=== PATIENT | male | born 1970 | race Caucasian/White ===

== ENCOUNTER 2016-06-29 17:46 | Inpatient (IN) | payer OTHER ==
[~2016-06-29] VITALS: Ht 177.8 cm; Wt 132.6 kg
[~2016-06-29 17:46] MED LIST: ABILIFY10 MG PO; ABILIFY15 MG PO; ABILIFY20 MG PO; ABILIFY30 MG PO; ABILIFY5 MG PO; ADULT LOW DOSE81 M1; ALEVE220 M2 PO; ASPIR 8181 M1 PO; ASPIR-LOW81 MG PO; ASPIRIN325 MG PO; AZITHROMYCIN500 M1 PO; Abilify PO; BAYER ASPIRIN325 M1 PO; BRILINTA90 MG PO; BUSPAR10 MG PO; CHANTIX1 EACH; CHANTIX1 MG; CLONAZEPAM1 MG; CYANOCOBALAM1000 MCG PO; CYCLOBENZAPRINE 10 M; CYCLOBENZAPRINE10 MG PO; DESYREL100 MG PO; DOXEPIN HCL50 MG PO; ECOTRIN325 MG PO; ENDOCET 5-3251 EACH PO; ENDOCET 7.5-321 EACH PO; ESCITALOPRAM OX10 MG PO; ESCITALOPRAM OX20 MG PO; Ecotrin PO; FAMOTIDINE40 MG PO; FLEXERIL10 MG PO; FORTAMET1000 M1 PO; FUROSEMIDE20 MG; FUROSEMIDE20 MG PO; FUROSEMIDE40 MG PO; Flexeril PO; GABAPENTIN300 MG PO; GABAPENTIN600 MG PO; GABAPENTIN800 MG PO; GLIPIZIDE10 M1 PO; GLIPIZIDE10 MG PO; GLIPIZIDE5 M1 PO; GLUCOPHAGE1000 M1; GLUCOPHAGE1000 MG; GLUCOPHAGE1000 MG PO; GLUCOTROL10 MG PO; Glucotrol PO; Habitrol,Nicoderm CQ TD; IBUPROFEN800 MG PO; IMDUR60 MG PO; ISOSORBIDE DINI30 MG PO; ISOSORBIDE MONO30 MG PO; Imdur PO; KLONOPIN1 MG PO; KLONOPIN2 MG PO; KlonoPIN PO; LAMICTAL (GREE1 EACH; LAMICTAL PO; LAMICTAL XR300 MG PO; LAMICTAL100 MG PO; LAMICTAL200 MG PO; LAMICTAL25 MG PO; LAMOTRIGINE100 MG; LAMOTRIGINE25 MG PO; LANTUS (UNITS)1 UNIT SC; LANTUS 10100 UNITS/ SC; LANTUS 3 M100 UNITS/ PO; LANTUS 3 M100 UNITS/ SC; LANTUS100 UNIT/1 SQ; LASIX20 MG PO; LEVAQUIN750 MG PO; LEVEMIR FL100 UNIT/1 SC; LEVEMIR FL100 UNIT/1 SQ; LEVEMIR FL100 UNITS/ SC; LIDODERM 5% P1 PATCH TD; LIPITOR40 MG PO; LIPITOR80 MG PO; LISINOPRIL 20 MG TAB; LISINOPRIL10 MG PO; LISINOPRIL20 MG PO; LITE COAT ASPI325 M1 PO; LOPRESSOR100 M1 PO; LOPRESSOR100 MG; LOPRESSOR25 MG PO; LOPRESSOR50 MG PO; LaMICtal PO; Lasix PO; Lipitor PO; METFORMIN HCL1000 MG PO; METFORMIN HCL500 MG PO; METOPROLOL SUCC50 MG PO; METOPROLOL TART25 MG PO; METOPROLOL TART50 MG PO; MORPHINE SULFAT15 M1 PO; MOTRIN600 MG PO; MOTRIN800 MG PO; Motrin PO; NEURONTIN300 MG PO; NEURONTIN600 MG PO; NICOTINE PATCH1 EAC1 TD; NITROGLYCERIN0.3 MG BC; NITROGLYCERIN0.4 MG PO; NITROGLYCERIN0.4 MG SL; NITROSTAT,NITR0.4 M1; NITROSTAT0.4 MG SL; NOHOMEMEDS; NORCO 7.5/321 TABLET PO; NOVOLOG PE100 UNITS/ SC; NOVOLOG PE100 UNITS/ SQ; Neurontin PO; Nitrostat,NitroQuick SL; OXYCODONE-APAP1 EACH; PEPCID40 MG PO; PERCOCET 10-321 EACH; PERCOCET 10/1 TABLET; PERCOCET 10/1 TABLET PO; PERCOCET 7.51 TABLET PO; PERMETHRIN60 GM TP; PLAVIX75 MG; PLAVIX75 MG PO; PREDNISONE20 MG PO; PRINIVIL10 MG PO; PRINIVIL20 MG PO; PROAIR HFA8.5 GM IH; Percocet 5/325,Endoc PO; Plavix PO; ROBITUSSIN DM118 ML PO; ROZEREM PO; SIMVASTATIN40 MG; SIMVASTATIN40 MG PO; SIMVASTATIN80 M1 PO; ST. JOSEPH ASPI81 MG PO; THERAGRAN1 TABLET PO; TOPAMAX15 MG; TOPROL XL100 MG PO; TRAMADOL HCL50 MG PO; TRAZODONE HCL100 MG PO; TYLENOL WITH C1 EACH PO; Toprol XL PO; Tylenol Regular Stre PO; ULTRAM50 MG PO; VALIUM5 MG PO; VENTOLIN HFA18 GM IH; WELLBUTRIN75 MG PO; ZESTRIL,PRINIVI20 MG PO; ZESTRIL,PRINIVIL5 MG PO; ZESTRIL10 MG PO; Zestril,Prinivil PO; Zithromax PO; Zocor PO; [UNRECOGNIZED DRUG - OTHER] PO; simvastatin
[2016-06-29] MEDS ORDERED: TRICOR145 MG PO (18:01)
[2016-06-29] MEDS ORDERED: GLIPIZIDE10 MG PO (18:02)
[2016-06-29] MEDS ORDERED: PANTOPRAZOLE SO40 MG PO (18:06)
[2016-06-29] MEDS ORDERED: TRULICITY1.5 MG/0.5 SC (18:09)
[2016-06-29] MEDS ORDERED: NOVOLOG100 UNIT/1 SC (18:09)
[2016-06-29 18:40] LABS: HEMATOCRIT 44.6 % (38.0-50.0); MCH 31.3 PG (29.0-34.0); MCHC 35.2 G/DL (30.0-36.0); MCV 88.8 FL (86-99); MEAN PLAT.VOLUME 8.8 uM^3 (9.0-12.4); PLATELET COUNT 217 K/uL (156-360); RBC DIS.WIDTH-CV 12.9 % (11.8-14.6); RBC DIS.WIDTH-SD 42.1 % (39-53); RED BLOOD COUNT 5.02 M/uL (4.00-5.50)
[2016-06-29 18:43] LABS: WHITE BLOOD COUNT 13.7 K/uL (4.1-10.2)
[2016-06-29 18:54] LABS: CHLORIDE 103 mEq/L (99-109); POTASSIUM 3.9 mEq/L (3.7-5.4); SODIUM 136 mEq/L (136-147)
[2016-06-29 18:57] LABS: GLUCOSE 186 mg/dL (70-99)
[2016-06-29 18:58] LABS: ANION GAP 14 MEQ/L (2-14)
[2016-06-29 18:59] LABS: TOTAL BILIRUBIN 0.9 mg/dL (0.0-1.0)
[2016-06-29 19:00] LABS: ALKALINE PHOSPHATASE 83 IU/L (3-129); GFR ESTIMATE (CALCULATED) 57 mL/min/
[2016-06-29 19:01] LABS: UREA NITROGEN (BUN) 23 mg/dL (9-23)
[2016-06-29 19:02] LABS: TROP-I INTERPRETATION NEGATIVE; TROPONIN-I < 0.01 ng/mL (0.0-0.30)
[2016-06-30] VITALS (7 sets, daily range): BP systolic 96–130; BP diastolic 57–77
[2016-06-30 05:48] LABS: BASOPHIL COUNT 0.1 K/uL (0-0.1); EOSINOPHIL COUNT 0.2 K/uL (0-0.3); HEMATOCRIT 39.5 % (38.0-50.0); IMMATURE GRANULOCYTE (%) 0.8 % (0.0-0.7); IMMATURE GRANULOCYTE COUNT 0.1 K/uL; INSTRUMENT ABS NEUTROPHIL CT 4.6 K/uL; LYMPHOCYTE COUNT 3.4 K/uL (1.0-2.8); MCH 31.6 PG (29.0-34.0); MCHC 34.2 G/DL (30.0-36.0); MCV 92.5 FL (86-99); MEAN PLAT.VOLUME 9.1 uM^3 (9.0-12.4); MONOCYTE (%) 8.4 % (3-12); MONOCYTE COUNT 0.8 K/uL (0-0.8); NEUTROPHIL (%) 51.2 % (45-76); NEUTROPHIL COUNT 4.6 K/uL (1.8-6.4); PLATELET COUNT 204 K/uL (156-360); RBC DIS.WIDTH-CV 13.2 % (11.8-14.6); RBC DIS.WIDTH-SD 44.9 % (39-53); RED BLOOD COUNT 4.27 M/uL (4.00-5.50); WHITE BLOOD COUNT 9.1 K/uL (4.1-10.2)
[2016-06-30 06:14] LABS: ANION GAP 9 MEQ/L (2-14); CHLORIDE 104 MEQ/L (99-109); GFR ESTIMATE (CALCULATED) > 59 mL/min/; GLUCOSE 218 mg/dL (70-99); POTASSIUM 3.9 MEQ/L (3.7-5.4); SAMPLE HEMOLYSIS CHECK 0; SAMPLE ICTERIC CHECK 0; SAMPLE LIPEMIA CHECK 0; SODIUM 136 MEQ/L (136-147); UREA NITROGEN (BUN) 23 mg/dL (9-23)
[2016-06-30 12:34] LABS: POINT-OF-CARE METER ID UU14149397
[2016-06-30 16:16] LABS: POINT-OF-CARE METER ID UU14149397
[2016-06-30 21:43] LABS: POINT-OF-CARE METER ID UU14149397
[2016-07-01 04:46] VITALS: BP 120/69
[2016-07-01 06:06] LABS: POINT-OF-CARE METER ID UU14149397
[2016-07-01 06:12] LABS: EOSINOPHIL (%) 1.9 % (0-5); EOSINOPHIL COUNT 0.1 K/uL (0-0.3); IMMATURE GRANULOCYTE (%) 0.7 % (0.0-0.7); IMMATURE GRANULOCYTE COUNT 0.1 K/uL; INSTRUMENT ABS NEUTROPHIL CT 4.1 K/uL; LYMPHOCYTE COUNT 2.5 K/uL (1.0-2.8); MCH 31.4 PG (29.0-34.0); MCV 92.4 FL (86-99); MONOCYTE (%) 8.6 % (3-12); MONOCYTE COUNT 0.6 K/uL (0-0.8); NEUTROPHIL (%) 54.5 % (45-76); NEUTROPHIL COUNT 4.1 K/uL (1.8-6.4); PLATELET COUNT 168 K/uL (156-360); RBC DIS.WIDTH-CV 12.5 % (11.8-14.6); RBC DIS.WIDTH-SD 42.5 % (39-53); RED BLOOD COUNT 4.33 M/uL (4.00-5.50); WHITE BLOOD COUNT 7.4 K/uL (4.1-10.2)
[2016-07-01 06:42] LABS: ANION GAP 7 MEQ/L (2-14); CHLORIDE 104 MEQ/L (99-109); GFR ESTIMATE (CALCULATED) > 59 mL/min/; GLUCOSE 130 mg/dL (70-99); POTASSIUM 4.4 MEQ/L (3.7-5.4); SAMPLE HEMOLYSIS CHECK 0; SAMPLE ICTERIC CHECK 0; SAMPLE LIPEMIA CHECK 0; SODIUM 139 MEQ/L (136-147); UREA NITROGEN (BUN) 14 mg/dL (9-23)
[2016-07-01 08:06] VITALS: BP 128/69
[2016-07-01 10:47] VITALS: BP 134/87
[2016-07-01 11:34] LABS: POINT-OF-CARE METER ID UU14149397
[2016-07-01 13:29] LABS: POINT-OF-CARE METER ID UU13113675
[2016-07-01 16:05] VITALS: BP 124/75
[2016-07-01 20:20] VITALS: BP 124/72
[2016-07-01 21:19] LABS: POINT-OF-CARE METER ID UU14149397
[2016-07-01 23:33] VITALS: BP 113/69
[2016-07-02 04:47] VITALS: BP 114/68
[2016-07-02 05:50] LABS: GFR ESTIMATE (CALCULATED) > 59 mL/min/; UREA NITROGEN (BUN) 14 mg/dL (9-23)
[2016-07-02 07:45] VITALS: BP 11/74
[2016-07-02 11:47] LABS: POINT-OF-CARE METER ID UU14149397
[2016-07-02 12:15] VITALS: BP 108/59
[2016-07-02 16:20] LABS: POINT-OF-CARE METER ID UU14149397
[2016-07-02 16:30] VITALS: BP 113/72
[2016-07-02 19:17] VITALS: BP 119/70
[2016-07-02 21:24] LABS: POINT-OF-CARE METER ID UU14149397
[2016-07-02 23:39] VITALS: BP 124/67
[2016-07-03 03:22] VITALS: BP 125/58
[2016-07-03 05:53] LABS: EOSINOPHIL COUNT 0.1 K/uL (0-0.3); IMMATURE GRANULOCYTE (%) 0.4 % (0.0-0.7); INSTRUMENT ABS NEUTROPHIL CT 3.5 K/uL; LYMPHOCYTE COUNT 2.6 K/uL (1.0-2.8); MCH 31.8 PG (29.0-34.0); MCHC 34.7 G/DL (30.0-36.0); MCV 91.6 FL (86-99); MEAN PLAT.VOLUME 9.2 uM^3 (9.0-12.4); MONOCYTE (%) 9.5 % (3-12); MONOCYTE COUNT 0.7 K/uL (0-0.8); NEUTROPHIL (%) 50.4 % (45-76); NEUTROPHIL COUNT 3.5 K/uL (1.8-6.4); PLATELET COUNT 161 K/uL (156-360); RBC DIS.WIDTH-CV 12.7 % (11.8-14.6); RBC DIS.WIDTH-SD 42.7 % (39-53); RED BLOOD COUNT 4.15 M/uL (4.00-5.50); WHITE BLOOD COUNT 6.9 K/uL (4.1-10.2)
[2016-07-03 06:17] LABS: ANION GAP 7 MEQ/L (2-14); CHLORIDE 105 MEQ/L (99-109); GFR ESTIMATE (CALCULATED) > 59 mL/min/; GLUCOSE 152 mg/dL (70-99); POTASSIUM 3.8 MEQ/L (3.7-5.4); SAMPLE HEMOLYSIS CHECK 0; SAMPLE ICTERIC CHECK 0; SAMPLE LIPEMIA CHECK 0; SODIUM 137 MEQ/L (136-147); UREA NITROGEN (BUN) 11 mg/dL (9-23)
[2016-07-03 06:34] LABS: POINT-OF-CARE METER ID UU14149397
[2016-07-03 07:06] VITALS: BP 120/73
[2016-07-03 11:02] VITALS: BP 133/81
[2016-07-03 15:43] VITALS: BP 131/71
[2016-07-03] MEDS ORDERED: MOTRIN600 MG PO (19:14)
[2016-07-03] MEDS ORDERED: DOCUSATE SODIU100 MG PO (19:15)
[2016-07-03] MEDS ORDERED: HYDROCODON-ACE1 EAC7 PO (19:16)
[2016-07-03] MEDS ORDERED: AMPICILLIN TRI500 MG PO (19:18)
[2016-07-03] MEDS ORDERED: BENADRYL25 MG PO (19:20)
[2016-07-03] MEDS ORDERED: AUGMENTIN875 MG PO (20:24)
== END 2016-07-03 20:42 | disposition home or self-care (01) | DRG 728 ==
LOC: EME 17:46 → 3EAST 22:38 → EDOF 22:38 → 3EAST 06-30 00:12
PROVIDERS: Family Medicine; Family Medicine Sports Medicine; Nurse Practitioner Family
PROC: 0H9AXZZ Drainage of Inguinal Skin, External Approach (ICD-10-PCS; principal; 2016-07-01)
DX: N49.2 Inflammatory disorders of scrotum (principal); F32.9 Major depressive disorder, single episode, unspecified; F17.200 Nicotine dependence, unspecified, uncomplicated; E11.65 Type 2 diabetes mellitus with hyperglycemia; E78.5 Hyperlipidemia, unspecified; I10 Essential (primary) hypertension; R10.9 Unspecified abdominal pain; I50.9 Heart failure, unspecified; F31.9 Bipolar disorder, unspecified; I25.10 Atherosclerotic heart disease of native coronary artery without angina pectoris; E66.01 Morbid (severe) obesity due to excess calories; F41.1 Generalized anxiety disorder; G89.29 Other chronic pain; M19.90 Unspecified osteoarthritis, unspecified site; I25.2 Old myocardial infarction; Z95.5 Presence of coronary angioplasty implant and graft; Z79.82 Long term (current) use of aspirin; Z79.4 Long term (current) use of insulin; Z68.41 Body mass index [BMI] 40.0-44.9, adult
CPT/HCPCS: 71020; 74177; 80048; 80053; 80202; 82565; 82948; 83605; 83880; 84484; 84520; 85025; 85027; 87040; 87070; 87075; 87076; 87077; 87186; 87205; 93005; 99202; 99281; 99285; J0330; J1170; J1650; J1815; J2270; J2405; J2543; J2710; J2765; J3010; J3370; J7050; S0020

== ENCOUNTER 2016-07-19 12:09 | Emergency (ER) | payer OTHER ==
[~2016-07-19] VITALS: Ht 177.8 cm; Wt 133.4 kg
[~2016-07-19 12:09] MED LIST changes: +AMPICILLIN TRI500 MG PO; +AUGMENTIN875 MG PO; +BENADRYL25 MG PO; +DOCUSATE SODIU100 MG PO; +HYDROCODON-ACE1 EAC7 PO; +NOVOLOG100 UNIT/1 SC; +PANTOPRAZOLE SO40 MG PO; +TRICOR145 MG PO; +TRULICITY1.5 MG/0.5 SC
[2016-07-19 13:06] VITALS: BP 129/88
== END 2016-07-19 15:58 | disposition home or self-care (01) ==
LOC: EME 12:09
DX: Z51.89 Encounter for other specified aftercare (principal); Z53.21 Procedure and treatment not carried out due to patient leaving prior to being seen by health care provider; F17.200 Nicotine dependence, unspecified, uncomplicated

== ENCOUNTER 2016-12-23 10:59 | Emergency (ER) | payer OTHER ==
[~2016-12-23] VITALS: Ht 177.8 cm; Wt 130.0 kg
[2016-12-23 12:00] LABS: INFLUENZA A VIRAL ANTIGEN NEGATIVE; INFLUENZA B VIRAL ANTIGEN NEGATIVE
[2016-12-23] MEDS ORDERED: TESSALON PERLE100 MG PO (14:21)
[2016-12-23 14:44] VITALS: BP 107/73
== END 2016-12-23 14:46 | disposition home or self-care (01) ==
LOC: EME 10:59
DX: J06.9 Acute upper respiratory infection, unspecified (principal); E11.9 Type 2 diabetes mellitus without complications; E78.5 Hyperlipidemia, unspecified; F17.200 Nicotine dependence, unspecified, uncomplicated; Z95.5 Presence of coronary angioplasty implant and graft; Z86.14 Personal history of Methicillin resistant Staphylococcus aureus infection
CPT/HCPCS: 71020; 87502; 94640; 99281; 99284

== ENCOUNTER 2017-04-22 11:14 | Emergency (ER) | payer OTHER ==
[~2017-04-22] VITALS: Ht 177.8 cm; Wt 142.5 kg
[~2017-04-22 11:14] MED LIST changes: +TESSALON PERLE100 MG PO
[2017-04-22 12:03] LABS: HEMOGLOBIN 16.1 G/DL (12.5-16.6); MCH 31.1 PG (29.0-34.0); MCHC 34.3 G/DL (30.0-36.0); MCV 90.7 FL (86-99); PLATELET COUNT 248 K/uL (156-360); RBC DIS.WIDTH-CV 12.9 % (11.8-14.6); RBC DIS.WIDTH-SD 42.4 % (39-53); RED BLOOD COUNT 5.18 M/uL (4.00-5.50); WHITE BLOOD COUNT 9.8 K/uL (4.1-10.2)
[2017-04-22 12:19] LABS: CHLORIDE 106 mEq/L (99-109)
[2017-04-22 12:20] LABS: POTASSIUM 5.8 mEq/L (3.7-5.4); SODIUM 132 mEq/L (136-147)
[2017-04-22 12:21] LABS: GLUCOSE 218 mg/dL (70-99)
[2017-04-22 12:25] LABS: CREATININE 1.1 mg/dL (0.6-1.3); GFR ESTIMATE (CALCULATED) > 59 mL/min/ (58.99-99999)
[2017-04-22 12:26] LABS: UREA NITROGEN (BUN) 23 mg/dL (9-23)
[2017-04-22 12:27] LABS: TROP-I INTERPRETATION NEGATIVE; TROPONIN-I 0.02 ng/mL (0.0-0.30)
[2017-04-22 17:26] LABS: CHLORIDE 107 mEq/L (99-109); POTASSIUM 5.1 mEq/L (3.7-5.4); SODIUM 135 mEq/L (136-147)
[2017-04-22 17:28] LABS: GLUCOSE 178 mg/dL (70-99)
[2017-04-22 17:31] LABS: GFR ESTIMATE (CALCULATED) > 59 mL/min/ (58.99-99999)
[2017-04-22 17:32] LABS: UREA NITROGEN (BUN) 23 mg/dL (9-23)
[2017-04-22 17:37] VITALS: BP 117/50
== END 2017-04-22 18:16 | disposition home or self-care (01) ==
LOC: EME 11:14
PROVIDERS: Emergency Medicine
DX: R60.0 Localized edema (principal); I11.0 Hypertensive heart disease with heart failure; I50.9 Heart failure, unspecified; I25.10 Atherosclerotic heart disease of native coronary artery without angina pectoris; E11.9 Type 2 diabetes mellitus without complications; E78.5 Hyperlipidemia, unspecified; F31.9 Bipolar disorder, unspecified; F17.200 Nicotine dependence, unspecified, uncomplicated; I25.2 Old myocardial infarction; Z95.5 Presence of coronary angioplasty implant and graft; Z79.02 Long term (current) use of antithrombotics/antiplatelets; Z79.4 Long term (current) use of insulin; Z79.82 Long term (current) use of aspirin
CPT/HCPCS: 71046; 80048; 80048 91; 83880; 84484; 85027; 87502; 93005; 93970; 99281; 99285; J7030

== ENCOUNTER 2017-08-28 17:20 | Emergency (ER) | payer OTHER ==
[~2017-08-28] VITALS: Ht 177.8 cm; Wt 142.3 kg
[2017-08-28 18:11] LABS: HEMATOCRIT 43.1 % (38.0-50.0); HEMOGLOBIN 15.2 G/DL (12.5-16.6); MCHC 35.3 G/DL (30.0-36.0); PLATELET COUNT 195 K/uL (156-360); RBC DIS.WIDTH-CV 13.4 % (11.8-14.6); RBC DIS.WIDTH-SD 42.8 % (39-53); WHITE BLOOD COUNT 13.8 K/uL (4.1-10.2)
[2017-08-28] MEDS ORDERED: JARDIANCE10 MG PO (18:16)
[2017-08-28 18:21] LABS: ALBUMIN 3.8 g/dL (3.2-4.8)
[2017-08-28 18:22] LABS: CHLORIDE 104 mEq/L (99-109); POTASSIUM 4.1 mEq/L (3.7-5.4); SODIUM 138 mEq/L (136-147)
[2017-08-28 18:24] LABS: GLUCOSE 227 mg/dL (70-99); TOTAL PROTEIN 6.5 g/dL (6.4-8.3)
[2017-08-28 18:26] LABS: TOTAL BILIRUBIN 0.4 mg/dL (0.0-1.0)
[2017-08-28 18:27] LABS: ALKALINE PHOSPHATASE 64 IU/L (3-129)
[2017-08-28 18:28] LABS: CREATININE 1.4 mg/dL (0.6-1.3); GFR ESTIMATE (CALCULATED) 57 mL/min/ (58.99-99999)
[2017-08-28 18:29] LABS: AST (GOT) 15 IU/L (2-34); UREA NITROGEN (BUN) 23 mg/dL (9-23)
[2017-08-28 18:30] LABS: ALT (GPT) 23 IU/L (3-49)
[2017-08-28 18:31] LABS: LIPASE 15 U/L (1.0-51.0)
[2017-08-28 20:10] LABS: APPEARANCE CLEAR ((CLEAR)); BILIRUBIN NEGATIVE; BLOOD NEGATIVE; COLOR YELLOW ((YELLOW)); GLUCOSE (STRIP) >=500; KETONES NEGATIVE; LEUKOCYTES NEGATIVE; NITRITE NEGATIVE; PROTEIN (STRIP) NEGATIVE; SPECIFIC GRAVITY 1.029 (1.000-1.030); UCUL ADDED? NO; UROBILINOGEN 0.2 MG/DL (0.2-1.0)
[2017-08-28] MEDS ORDERED: PERCOCET 5/31 TABLET PO (20:37)
[2017-08-28 20:46] VITALS: BP 119/70
== END 2017-08-28 20:53 | disposition home or self-care (01) ==
LOC: EME 17:20
PROVIDERS: Physician Assistant
DX: K63.89 Other specified diseases of intestine (principal); R10.9 Unspecified abdominal pain; I11.0 Hypertensive heart disease with heart failure; I50.9 Heart failure, unspecified; E11.9 Type 2 diabetes mellitus without complications; Z79.4 Long term (current) use of insulin; E78.5 Hyperlipidemia, unspecified; I25.2 Old myocardial infarction; I25.10 Atherosclerotic heart disease of native coronary artery without angina pectoris; Z95.5 Presence of coronary angioplasty implant and graft; Z79.82 Long term (current) use of aspirin; F17.200 Nicotine dependence, unspecified, uncomplicated; Z90.49 Acquired absence of other specified parts of digestive tract
CPT/HCPCS: 74176; 80053; 81003; 83690; 85027; 99281; 99284; J3010; J7030